=== PATIENT | female | born 1980 ===

== ENCOUNTER 2017-11-25 07:30 | Inpatient (IN) | payer OTHER ==
[~2017-11-25] VITALS: Ht 160 cm; Wt 80.3 kg
[2017-11-25] MEDS ORDERED: CATAFLAN (09:17)
[2017-11-25] MEDS ORDERED: NEURONTIN300 MG PO (09:17)
[2017-12-07] MEDS ORDERED: DICLOFENAC POTA50 MG PO (12:12)
== END 2017-12-09 10:13 | disposition home or self-care (01) | DRG 741 ==
LOC: O/R 12-07 05:47 → SURG 12-07 07:00 → OB/GYN 12-07 10:47
PROVIDERS: Obstetrics & Gynecology
PROC: 0UT50ZZ Resection of Right Fallopian Tube, Open Approach (ICD-10-PCS; 2017-12-07)
PROC: 0UT00ZZ Resection of Right Ovary, Open Approach (ICD-10-PCS; 2017-12-07)
PROC: 0UT90ZZ Resection of Uterus, Open Approach (ICD-10-PCS; principal; 2017-12-07 07:00)
DX: D06.0 Carcinoma in situ of endocervix (principal); N80.0 Endometriosis of uterus; N83.291 Other ovarian cyst, right side